=== PATIENT | male | born 2005 | race Hispanic/Latino ===

== ENCOUNTER 2023-01-22 19:10 | Emergency (ER) | payer OTHER ==
[2023-01-22] MEDS ORDERED: Ketorolac Tromethamine 30 MG/ML VIAL ONE (20:12)
== END 2023-01-22 22:19 | disposition home or self-care (01) ==
LOC: ERS 19:10
DX: S82.401A Unspecified fracture of shaft of right fibula, initial encounter for closed fracture (principal); S20.219A Contusion of unspecified front wall of thorax, initial encounter; R03.0 Elevated blood-pressure reading, without diagnosis of hypertension; V23.49XA Other motorcycle driver injured in collision with car, pick-up truck or van in traffic accident, initial encounter; Y93.55 Activity, bike riding
CPT/HCPCS: 29505; 71045; 96372; J1885

== ENCOUNTER 2024-07-07 16:25 | Emergency (ER) | payer OTHER, SELFPAY ==
[2024-07-07] MEDS ORDERED: Ketorolac Tromethamine 30 MG (1 mL) VIAL ONE (16:45)
[2024-07-07] MEDS ORDERED: Lidocaine 4% Patch ONE (16:46)
== END 2024-07-07 17:14 | disposition home or self-care (01) ==
LOC: ERS 16:25
DX: S39.012A Strain of muscle, fascia and tendon of lower back, initial encounter (principal); V89.2XXA Person injured in unspecified motor-vehicle accident, traffic, initial encounter
CPT/HCPCS: 72100; 96372; 99283; J1885